=== PATIENT | female | born 2005 | race African-American/Black ===

== ENCOUNTER 2023-11-28 11:47 | Emergency (ER) | payer MEDICAID ==
[~2023-11-28] VITALS: Ht 157.5 cm; Wt 59.9 kg
[2023-11-28 11:57] VITALS: BP 129/77; TEMP 98.1
[2023-11-28] MEDS ORDERED: ALBU18HF2 IH (14:09)
[2023-11-28] MEDS ORDERED: P50 MT (14:09)
[2023-11-28 14:10] VITALS: PULSE 60; RESP 19; O2SAT 95
[2023-11-28] MEDS: ALBUTEROL (0.083%) 2.5MG/3ML NEB HHN STA (14:10)
== END 2023-11-28 15:01 | disposition left against medical advice (07) ==
LOC: ER 13:48
DX: J45.901 Unspecified asthma with (acute) exacerbation (principal); Z91.010 Allergy to peanuts
CPT/HCPCS: 71045; 94640; 99283; Z7610 ×3